=== PATIENT | male | born 1965 | race Caucasian/White ===

== ENCOUNTER 2023-03-10 13:32 | Outpatient (CLI) | payer MEDICARE, SELFPAY ==
[2023-03-10 13:55] LABS: Basophils Absolute Auto 0.06 K/mm3 (0.00-0.10); Basophils Percent Auto 0.9 % (0.0-1.0); Eosinophils Absolute Auto 0.18 K/mm3 (0.02-0.50); Eosinophils Percent Auto 2.8 % (1.0-6.0); Hematocrit 31.3 % (40.0-54.0); Hemoglobin 9.8 g/dL (14.0-18.0); Immature Granulocyte Absolute 0.03 K/mm3 (0.00-0.00); Immature Granulocyte Percent A 0.5 % (0.0-0.0); Lymphocytes Absolute Auto 1.23 K/mm3 (1.10-4.50); Mean Corpuscular HGB Conc 31.3 g/dL (32.0-36.0); Mean Corpuscular Hemoglobin 25.1 pg (27.0-31.0); Mean Corpuscular Volume 80.1 fL (78.0-102.0); Mean Platelet Volume 9.2 fl (8.7-11.0); Monocytes Absolute Auto 0.48 K/mm3 (0.10-0.90); Monocytes Percent Auto 7.4 % (2.0-11.0); Neutrophils Absolute Auto 4.5 K/mm3 (1.7-7.2); Neutrophils Percent Auto 69.4 % (50.0-70.0); Platelet Count Result 248 K/mm3 (150-420); Red Blood Count 3.91 M/mm3 (4.70-6.10); Red Cell Distribution Width 15.3 % (11.6-14.4); White Blood Count 6.5 K/mm3 (4.8-10.8)
[2023-03-10 14:20] LABS: Hemoglobin A1C 6.2 % (<5.7)
[2023-03-10 14:45] LABS: Erythrocyte Sedimentation Rate 56 mm/hr (0-20)
[2023-03-10 14:50] LABS: Alanine Aminotransferase 37 U/L (16-63); Albumin Level 1.9 g/dL (3.4-5.0); Alkaline Phosphatase 153 U/L (46-116); Anion Gap 7 mmol/L (8-16); Aspartate Amino Transferase 36 U/L (15-37); Bilirubin,Total 0.4 mg/dL (0.00-1.00); Blood Urea Nitrogen 15 mg/dL (7-18); CRP 8.8 mg/dL (0.0-0.9); Calcium 8.4 mg/dL (8.5-10.1); Carbon Dioxide 27 mmol/L (21-32); Chloride 103 mmol/L (98-108); Estimated Glomerular Filt Rate > 60; Ferritin 73 ng/mL (26-388); Glucose 147 mg/dL (70-99); Lipase 30 U/L (16-77); Osmolality Calculated 287 mOsm/kg (285-295); Potassium 4.5 mmol/L (3.5-5.1); Sodium 137 mmol/L (136-145); Total Protein 6.7 g/dL (6.4-8.2)
[2023-03-13 19:16] LABS: Hepatitis A Antibody IgM Nonreactive; Hepatitis B Core Antibody Nonreactive (Nonreactive); Hepatitis B Surface Antigen Nonreactive (Nonreactive); Hepatitis C Virus Antibody Nonreactive
== END 2023-03-10 13:33 | disposition home or self-care (01) ==
LOC: CHSLAB 13:33
PROVIDERS: PCP Family Medicine; Visit Provider Family Medicine
DX: R10.9 Unspecified abdominal pain (principal); L97.509 Non-pressure chronic ulcer of other part of unspecified foot with unspecified severity; E11.621 Type 2 diabetes mellitus with foot ulcer; D50.9 Iron deficiency anemia, unspecified; R74.01 Elevation of levels of liver transaminase levels; E11.620 Type 2 diabetes mellitus with diabetic dermatitis
CPT/HCPCS: 36415; 80053; 80074; 82728; 83036; 83690; 85025; 85652; 86140

== ENCOUNTER 2023-04-15 14:04 | Outpatient (CLI) | payer MEDICARE, SELFPAY ==
[2023-04-15 14:50] LABS: Alanine Aminotransferase 35 U/L (16-63); Albumin Level 1.7 g/dL (3.4-5.0); Alkaline Phosphatase 173 U/L (46-116); Aspartate Amino Transferase 42 U/L (15-37); Bilirubin Direct 0.1 mg/dL (0-0.2); Bilirubin,Total 0.3 mg/dL (0.00-1.00); CRP 18.6 mg/dL (0.0-0.9); Total Protein 7.6 g/dL (6.4-8.2)
[2023-04-15 15:23] LABS: Erythrocyte Sedimentation Rate 56 mm/hr (0-20)
== END 2023-04-15 14:05 | disposition home or self-care (01) ==
PROVIDERS: PCP Family Medicine
DX: E11.621 Type 2 diabetes mellitus with foot ulcer (principal)
CPT/HCPCS: 36415; 80076; 85652; 86140

== ENCOUNTER 2023-09-13 09:22 | Outpatient (CLI) | payer MEDICARE, SELFPAY ==
[2023-09-13 09:55] LABS: Basophils Absolute Auto 0.06 K/mm3 (0.00-0.10); Basophils Percent Auto 1.1 % (0.0-1.0); Eosinophils Absolute Auto 0.21 K/mm3 (0.02-0.50); Eosinophils Percent Auto 3.7 % (1.0-6.0); Hematocrit 33.4 % (40.0-54.0); Hemoglobin 10.3 g/dL (14.0-18.0); Immature Granulocyte Absolute 0.04 K/mm3 (0.00-0.00); Immature Granulocyte Percent A 0.7 % (0.0-0.0); Lymphocytes Absolute Auto 1.26 K/mm3 (1.10-4.50); Lymphocytes Percent Auto 22.4 % (18.0-42.0); Mean Corpuscular HGB Conc 30.8 g/dL (32-36); Mean Corpuscular Hemoglobin 25.1 pg (27.0-31.0); Mean Corpuscular Volume 81.5 fL (78.0-102.0); Mean Platelet Volume 8.8 fl (8.7-11.0); Monocytes Absolute Auto 0.48 K/mm3 (0.10-0.90); Monocytes Percent Auto 8.5 % (2.0-11.0); Neutrophils Absolute Auto 3.57 K/mm3 (1.70-7.20); Neutrophils Percent Auto 63.6 % (50.0-70.0); Platelet Count Result 194 K/mm3 (150-420); Red Cell Distribution Width 16.5 % (11.6-14.4); White Blood Count 5.6 K/mm3 (4.8-10.8)
[2023-09-13 10:09] LABS: Hemoglobin A1C 7.5 % (<5.7)
[2023-09-13 10:40] LABS: Alanine Aminotransferase 26 U/L (16-63); Alkaline Phosphatase 138 U/L (46-116); Anion Gap 6 mmol/L (4-12); Aspartate Amino Transferase 31 U/L (15-37); Bilirubin,Total 0.3 mg/dL (0.00-1.00); Blood Urea Nitrogen 24 mg/dL (7-18); Calcium 8.2 mg/dL (8.5-10.1); Carbon Dioxide 28 mmol/L (21-32); Chloride 102 mmol/L (98-108); Cholesterol 200 mg/dL (0-200); Estimated Glomerular Filt Rate > 60; Glucose 146 mg/dL (70-99); HDL Direct 59 mg/dL (40-60); LDL Cholesterol Calculated 129 mg/dL (<130); Osmolality Calculated 289 mOsm/kg (285-295); Potassium 4.6 mmol/L (3.5-5.1); Sodium 136 mmol/L (136-145); Thyroid Stimulating Hormone 4.06 uIU/mL (0.36-3.74); Total Protein 7.2 g/dL (6.4-8.2); Triglycerides 59 mg/dL (0-150)
[2023-09-13 10:55] LABS: Prostate Specific Antigen 0.1 ng/mL (< OR = 4.0)
[2023-09-16 08:54] LABS: Vitamin D 25 Hydroxy 25 ng/mL (30-100)
== END 2023-09-13 09:23 | disposition home or self-care (01) ==
PROVIDERS: PCP Family Medicine
DX: I10 Essential (primary) hypertension (principal); E78.5 Hyperlipidemia, unspecified; E11.9 Type 2 diabetes mellitus without complications; Z12.5 Encounter for screening for malignant neoplasm of prostate; Z68.43 Body mass index [BMI] 50.0-59.9, adult
CPT/HCPCS: 36415; 80053; 80061; 82306; 83036; 84153; 84443; 85025; G0103

== ENCOUNTER 2024-05-22 13:46 | Outpatient (CLI) | payer MEDICARE, SELFPAY ==
[2024-05-22 14:15] LABS: Hemoglobin A1C 7.9 % (<5.7)
[2024-05-22 14:44] LABS: Thyroid Stimulating Hormone Reflex 3.42 u/IU/mL (0.36-3.74)
[2024-05-23 16:28] LABS: Vitamin D 25 Hydroxy 27 ng/mL (30-100)
== END 2024-05-22 13:47 | disposition home or self-care (01) ==
PROVIDERS: PCP Nurse Practitioner Family; Visit Provider Nurse Practitioner Family
DX: E11.9 Type 2 diabetes mellitus without complications (principal); E55.9 Vitamin D deficiency, unspecified
CPT/HCPCS: 36415; 82306; 83036; 84443